=== PATIENT | female | born 1950 | race Caucasian/White ===

== ENCOUNTER 2017-10-11 21:32 | Inpatient (IN) | payer MEDICARE, OTHER ==
[2017-10-11] MEDS ORDERED: Haloperidol Lactate 5 mg/mL 1mL Vial IM STA (21:54)
[2017-10-11] MEDS ORDERED: Haloperidol Lactate 5 mg/mL 1mL Vial ONE (21:56)
--- NOTE | 2017-10-11 22:02 | ED Physician Chart ---
ED Chief Complaint/HPI - Patient Information Date Seen:: 10/11/17 Time Seen:: 21:30 Chief Complaint:: Agitation History of Present Illness:: onset x one day of agitation and hostile behavior; no report of SIs, trauma, H/ As, neck pain, C/P, SOB, Abd. Pain, A/N/V/D/C, fever, chills, or urinary s/s Allergies:: Allergies Allergy/AdvReac Type Severity Reaction Status Date / Time iodine AdvReac Verified 12/22/15 11:39 meperidine AdvReac Verified 12/22/15 11:39 methadone AdvReac Verified 12/22/15 11:39 SULFUR AdvReac Uncoded 12/22/15 11:39 Vitals:: Vital Signs - 8 hr 10/11/17 21:35 Temp 97.8 F HR 70 RR 18 BP 93/66 O2 Sat % 97 Historian:: Patient, EMS Review:: Nurse's Note Reviewed, Old Chart Reviewed, EMS run form Reviewed ED Review of Systems - Review of Systems General/Constitutional: No fever, No chills, No weight loss, No weakness, No diaphoresis, No edema, No loss of appetite Skin: No skin lesions, No rash, No bruising Head: No headache, No light-headedness Eyes: No loss of vision, No pain, No diplopia ENT: No earache, No nasal drainage, No sore throat, No tinnitus Neck: No neck pain, No swelling, No thyromegaly, No stiffness, No mass noted Cardio Vascular: No chest pain, No palpitations, No PND, No orthopnea, No edema Pulmonary: No SOB, No cough, No sputum, No wheezing GI: No nausea, No vomiting, No diarrhea, No pain, No melena, No hematochezia, No constipation, No hematemesis G/U: No dysuria, No frequency, No hematuria, No nacturia 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, No abnormal vaginal bleed, No contraction Musculoskeletal: No bone or joint pain, No back pain, No muscle pain Endocrine: Polyuria, Polydipsia Psychiatric: No prior psych history, No depression, No anxiety, No suicidal ideation, No homicidal ideation, Auditory hallucination, No visual hallucination Hematopoietic: No bruising, No lymphadenopathy Allergic/Immuno: No urticaria, No angioedema Neurological: No syncope, No focal symptoms, No weakness, No paresthesia, No headache, No seizure, No dizziness, No confusion, No vertigo ED Past Medical History - Past Medical History Obtainable: Yes Past Medical History: HTN, DM, Dyslipidemia, Dementia, Other (Alzheimer's Disease) Family History: Diabetes Melitus, HTN Social History: Non Smoker, No Alcohol, No Drug Use, Single, Care Facility Surgical History: None Psychiatricy History: Schizophrenia, Bipolar, Dementia Medication: Reviewed Family Medical History - Family Member Mother History Unknown: Yes Ethnicity: Unknown Living Status: Unknown Hx Family Cancer: (unknown) Hx Family Coronary Artery Disease: (unknown) Hx Family Congestive Heart Failure: (unknown) Hx Family Hypertension: (unknown) Hx Family Stroke: (unknown) Hx Family Diabetes: (unknown) Hx Family Seizures: (unknown) Hx Family Dementia: (unknown) Hx Family AIDS: (unknown) Hx Family COPD: (unknown) Hx Family Hepatitis: (unknown) Hx Family Psychiatric Problems: (unknown) Hx Family Tuberculosis: (unknown) ED Physical Exam - Physical Examination General/Constitutional: Awake, Well-developed, well-nourished, Alert, No distress, GCS 15, Non-toxic appearing, Ambulatory Head: Atraumatic Eyes: Lids, conjuctiva normal, PERRL, EOMI Skin: Nl inspection, No rash, No skin lesions, No ecchymosis, Well hydrated, No lymphadenopathy ENMT: External ears, nose nl, TM canals nl, Nasal exam nl, Lips, teeth, gums nl , Oropharynx nl, Tonsils nl Neck: Nontender, Full ROM w/o pain, No JVD, No nuchal rigidity, No bruit, No mass, No stridor Respiratory: Nl effort/Exclusion, Clear to Auscultation, No Wheeze/Rhonchi/Rales Cardio Vascular: RRR, No murmur, gallop, rubs, NL S1 S2, Carotid/Femoral/Distal pulses equal bilaterally GI: No tenderness/rebounding/guarding, No organomegaly, No hernia, Normal BS's, Nondistended, No mass/bruits, No McBurney tenderness : No CVA tenderness Extremities: No tenderness or effusion, Full ROM, normal strength in all extremities, No edema, Normal digits & nails Neuro/Psych: DTR's symmetric, Normal sensory exam, Normal motor strength, Mood normal, Normal gait, No focal deficits Other Neuro/Psych comments:: + Psychomotor Agitation; no SIs; Mood/Affect: Labile; Disoriented and Confused Misc: Normal back, No paraspinal tenderness ED Labs/Radiology/EKG Results - Lab Results Comments:: unremarkable - EKG Interpretations EKG Time:: 22:35 Rate & Rhythm: 53; SB Comments:: non-specific st-t changes ED Septic Shock - . Is Septic Shock (SBP<90, OR Lactate>4 mmol\L) present?: No - <6hrs of presentation: Vital Signs: Vital Signs - 8 hr 10/11/17 21:35 Temp 97.8 F HR 70 RR 18 BP 93/66 O2 Sat % 97 ED Reassessment (Disposition) - Reassessment Reassessment Condition:: Improved - Diagnosis Diagnosis:: Medical Clearance; Agitation; Dementia; Alzheimer's Disease; Bipolar Disorder; Psychosis - Aftercare/Follow up Instructions Aftercare/Follow-Up Instructions:: Counseled pt regarding lab results/diagnosis & need follow up, Counseled pt & family regarding lab results/diagnosis & need follow up - Patient Disposition Discharge/Transfer:: Acute Care w/in this hosp Accepting Physician:: Dr. Wilson Time Called:: [id number] Time Responded:: 22:30 Admitted to:: [facility] Spoke to:: Dr. Wilson Admitting Medical Physician:: Dr. Wilson Admitting Psych Physician:: Dr. Maldonado Condition at Disposition:: Stable, Improved ED Discharge Plan - Patient Disposition Instructions: Psychosis
[2017-10-11 22:15] LABS: % BASOPHILS 0.5 % (0.0-2.0); % EOSINOPHILS 2.2 % (0.0-5.0); % LYMPHOCYTES 30.8 % (20.0-50.0); % MONOCYTES 8.9 % (2.0-10.0); % NEUTROPHILS 57.6 % (40.0-80.0); EOSINOPHILE ABSOLUTE 0.2 Th/cmm (0.1-0.4); HEMATOCRIT 36.3 % (41.0-60); HEMOGLOBIN 11.9 gm/dL (12-16); LYMPHOCYTE ABSOLUTE 2.3 Th/cmm (1.5-3.0); MEAN CELL VOLUME 88.8 fl (81-100); MEAN CORPUSCULAR HEMOGLOBIN 29.1 pg (27.0-31.0); MEAN CORPUSCULAR HGB CONC 32.7 pg (28.0-36.0); MONOCYTE ABSOLUTE 0.7 Th/cmm (0.3-1.0); NEUTROPHILE ABSOLUTE 4.2 Th/cmm (1.8-8.0); PLATELET COUNT 326 Th/cmm (150-400); RED BLOOD COUNT 4.09 Mil/cmm (3.80-5.20); RED CELL DISTRIBUTION WIDTH 21.9 % (11.5-20.0); WHITE BLOOD COUNT 7.4 Th/cmm (4.8-10.8)
[2017-10-11 22:32] LABS: ACETAMINOPHEN < 10.0 ug/mL (10.0-30.0); ALB/GLOB RATIO 1.2 (1.0-1.8); ALBUMIN 3.7 gm/dL (3.7-5.3); ALKALINE PHOSPHATASE 47 U/L (34-104); BILIRUBIN,TOTAL 0.5 mg/dL (0.3-1.0); BUN - UREA NITROGEN 26 mg/dL (7-25); CARBON DIOXIDE 22.6 mEq/L (21.0-31.0); CHLORIDE 105 mEq/L (98-107); CHOLESTEROL 200 mg/dL (<200); CREATININE - SERUM 0.9 mg/dL (0.6-1.2); GFR AFRICAN-AMERICAN > 60.0 ml/min (>90); GFR NON AFRICAN-AMERICAN > 60.0 ml/min; GLUCOSE 99 mg/dL (70-105); HDL -HIGH DENSITY LIPOPROTEIN 46 mg/dL (23-92); POTASSIUM SERUM 4.6 mEq/L (3.5-5.1); SGOT 19 U/L (13-39); SGPT/ALT 26 U/L (7-52); SODIUM SERUM 137 mEq/L (136-145); TOTAL PROTEIN,SERUM 6.8 gm/dL (6.0-8.3); TRIGLYCERIDES 52 mg/dL (<150)
[2017-10-11 22:45] LABS: SALICYLATES (ASPIRIN) < 25.0 mg/L (30.0-100.0)
[2017-10-11 23:56] VITALS: BP 107/55
[2017-10-11] MEDS ORDERED: Maalox 30 mL Cup PO PRN (23:56)
[2017-10-12] MEDS ORDERED: Hydrocodone/APAP 10 mg/325 mg Tab PO PRN (00:03)
[2017-10-12] MEDS ORDERED: Hydrocodone/APAP 5mg/325mg Tab PO PRN (00:03)
[2017-10-12] MEDS ORDERED: Magnesium Hydroxide (MOM) 30 mL UDC PO PRN (00:03)
[2017-10-12] MEDS: INSULIN ASPART SLIDING SCALE 100 UNITS/ML UNIT SUBQ SCH ×2 (06:44→18:52)
[2017-10-12] MEDS ORDERED: INSULIN ASPART SLIDING SCALE 100 UNITS/ML UNIT SUBQ SCH (09:00)
[2017-10-12] MEDS: Ferrous Sulfate 325 MG TAB PO SCH (09:46)
[2017-10-12] MEDS: Pantoprazole 40 mg EC Tab PO SCH (09:46)
[2017-10-12] MEDS: Multivitamin Tab PO SCH (09:46)
[2017-10-12 18:43] LABS: A1C % 7.7 % (4.0-6.0)
[2017-10-12] MEDS: Insulin Detemir 100 units/mL 10mL Vial SUBQ SCH (21:31)
--- NOTE | 2017-10-13 04:35 | Psychosocial Evaluation ---
DATE OF SERVICE: 10/11/2017 IDENTIFYING DATA: The patient is a 67-year-old woman, resident of [facility] in [place]. Information obtained by directly interviewing the patient as well as reviewing the admission papers. JUSTIFICATION OF HOSPITALIZATION: The patient is admitted here for aggressive behavior and psychosis. CHIEF COMPLAINT: "I don't know." HISTORY OF PRESENT ILLNESS: This is one of multiple psychiatric hospitalizations for this patient who is reported to have been getting decompensated at least for past 3 weeks prior to the hospitalization. The patient is reported to be getting very aggressive and has been very paranoid and has been accusing people of doing things behind her back. Sleep and appetite prior to the hospitalization are reported to be very poor. The patient is not able to contract for safety. The patient is maintained on Seroquel and Ativan, but still the patient has been getting out of control. PAST PSYCHIATRIC HISTORY: The patient was hospitalized on many occasions before. MEDICAL HISTORY: Physical examination is requested and done by Dr. Steve Hickman. SUBSTANCE ABUSE HISTORY: None. PHYSICAL OR SEXUAL ABUSE HISTORY: None. LEGAL PROBLEMS: None at this time. STRENGTH AND ASSETS: MENTAL STATUS EXAMINATION: The patient is a 67-year-old woman looking older than her stated age, superficially cooperative. Eye contact is poor. Mood is irritable. Affect is constricted. Coping skills are noted to be very poor. The patient is actively responding to internal stimuli and is very paranoid and does not make much sense. The patient's long as well as a short-term memory is noted to be very poor. The patient is going on a tangent. The patient, however, is aware that she is in the hospital. DIAGNOSTIC IMPRESSION: AXIS I: Psychotic, not otherwise specified. AXIS IB. Rule out schizophrenia, chronic paranoid type. AXIS II: None. AXIS III: As per Dr. Wilson. IMMEDIATE TREATMENT PLAN: The patient is going to be observed on inpatient unit, provided with supportive psychotherapy and the patient is going to be continued on the Seroquel and Ativan. ESTIMATED LENGTH OF STAY: 3-5 days. DISCHARGE CRITERIA: When she no longer a threat to self or others and be able to cope up with the stress. [facility]# [id number]
[2017-10-13] MEDS: INSULIN ASPART SLIDING SCALE 100 UNITS/ML UNIT SUBQ SCH ×2 (08:00→16:31)
[2017-10-13] MEDS: Pantoprazole 40 mg EC Tab PO SCH (09:42)
[2017-10-13] MEDS: Multivitamin Tab PO SCH (09:42)
[2017-10-13] MEDS: Ferrous Sulfate 325 MG TAB PO SCH (09:43)
[2017-10-13] MEDS ORDERED: INSULIN ASPART, RECOMBINANT 100 UNITS/ML SUBQ ONE (12:07)
--- NOTE | 2017-10-13 15:34 | History and Physical ---
History of Present Illness - HPI Chief Complaint: agitation HPI: This is a 67 year old female admitted from SNF due to agitation. Vital Signs: Last Vital Signs Temp 98.1 F 10/11/17 23:17 Pulse 57 10/11/17 23:17 Resp 15 10/11/17 23:17 BP 107/55 10/11/17 23:56 Pulse Ox 99 10/11/17 23:17 Past Medical History Other History: HTN, DM, Dyslipidemia, Dementia, Other (Alzheimer's Disease) Family Medical History - Family Member Mother History Unknown: Yes Ethnicity: Unknown Living Status: Unknown Hx Family Cancer: (unknown) Hx Family Coronary Artery Disease: (unknown) Hx Family Congestive Heart Failure: (unknown) Hx Family Hypertension: (unknown) Hx Family Stroke: (unknown) Hx Family Diabetes: (unknown) Hx Family Seizures: (unknown) Hx Family Dementia: (unknown) Hx Family AIDS: (unknown) Hx Family COPD: (unknown) Hx Family Hepatitis: (unknown) Hx Family Psychiatric Problems: (unknown) Hx Family Tuberculosis: (unknown) Social History Smoke: No Alcohol: None Drugs: None Lives: Halfway - Medications Home Medications: Home Medication Medication Instructions Recorded Type Acetaminophen [Tylenol] 650 mg PO Q4HR PRN #0 tab 07/01/16 Rx Donepezil Hcl [Aricept] 10 mg PO HS #0 tab 07/01/16 Rx Magnesium Hydroxide [Milk of 30 ml PO HS PRN #0 udc 07/01/16 Rx Magnesia] Memantine [Namenda] 5 mg PO BID #0 tab 07/01/16 Rx Multivitamin [Theragran] 1 tab PO DAILY #0 tab 07/01/16 Rx metFORMIN [Glucophage] 1,000 mg PO BIDWM #0 tab 07/01/16 Rx Docusate Sodium [Colace] 100 mg PO BID 12/30/16 History Insulin Glargine, Recombinan 20 units SUBQ HS 12/30/16 History [Lantus] Ascorbic Acid [Vitamin C] 500 mg PO DAILY 10/11/17 History Calcium Carbonate [Tums] 500 mg PO DAILY 10/11/17 History Esomeprazole Magnesium [Nexium] 40 mg PO DAILY 10/11/17 History Famotidine [Pepcid*] 40 mg PO DAILY 10/11/17 History Ferrous Sulfate [Iron] 325 mg PO DAILY 10/11/17 History Hydrocodone/APAP 10 mg/325 mg 1 tab PO Q4H PRN 10/11/17 History [[place] 10 mg/325 mg] Hydrocodone/Acetaminophen [[place] 2 tab PO Q4HR PRN 10/11/17 History 325 mg-5 mg*] Insulin Aspart Sliding Scale See Protocol SUBQ BID 10/11/17 History [NovoLOG INSULIN SLIDING SCALE] Oxybutynin Chloride [Ditropan*] 5 mg PO TID 10/11/17 History QUEtiapine Fumarate [SEROquel] 150 mg PO DAILY 10/11/17 History - Allergies Allergies/Adverse Reactions: Allergies Allergy/AdvReac Type Severity Reaction Status Date / Time sulfur dioxide Allergy Verified 10/11/17 22:08 iodine AdvReac Verified 10/11/17 22:07 meperidine AdvReac Verified 10/11/17 22:07 methadone AdvReac Verified 10/11/17 22:07 Review of Systems - Review of Systems Constitutional: Report: No Significant Eyes: Report: No Significant ENT: Report: No Significant Respiratory: Report: No Significant Cardiovascular: Report: No Significant Gastrointestinal: Report: No Significant Genitourinary: Report: No Significant Musculoskeletal: Report: No Significant Skin: Report: No Significant Neurological: Report: No Significant Physical Exam - Physical Exam HEENT: Report: Ears Nose Throat within normal limits Neck: Report: Within normal limits Cardiovascular Systems: Report: +s1/s2 noted, Regular, Rate and Rhythm Respiratory: Report: Breath Sounds are within normal limits Abdomen: Report: Non-tender to palpation Back: Report: Inspection of back is within normal limits. Extremities: Report: Non-tender to palpation. Skin: Report: Color of skin is within normal limits Neuro/Psych: Report: Mood affect is within normal limits - Assessment Assessment: HTN DM Dyslipidemia Dementia Alzheimer's Disease agitation - Plan Plan: continue current orders
[2017-10-13] MEDS: Insulin Detemir 100 units/mL 10mL Vial SUBQ SCH (21:26)
--- NOTE | 2017-10-13 22:31 | Progress Notes ---
DATE: 10/13/2017 SUBJECTIVE: Staff was spoken to. The patient is interviewed. Mood is noted to be irritable. Affect is constricted. Coping skills are noted to still poor. The patient is isolative and withdrawn. Paranoid delusions are okay. The patient, however, has been able to tolerate the quetiapine that was given 150 mg at bedtime. The patient is still having difficult time to formulate her thoughts. ASSESSMENT: The patient is still psychotic and impulsive. PLAN: To continue the patient with the supportive therapy, encouraged the patient to verbalize the concerns rather than to act out. JOB# [id number]
--- NOTE | 2017-10-13 23:07 | Consultation ---
DATE OF CONSULTATION: 10/13/2017 REQUESTING PHYSICIAN: Darian Carreno M.D. TYPE OF CONSULTATION: Psychology. HISTORY OF PRESENT ILLNESS: The patient is a 67-year-old female who is a resident of [facility] in [place]. The patient is known to this keno writer from previous hospitalizations. The following is by review of the medical record and by patient's self report. The patient is being admitted for aggressive behavior and psychotic symptoms. The staff at the patient's facility indicate that she has been decompensating for approximately 3 weeks and not improving. The patient seemed to be getting aggressive with paranoid ideation and accusing people of doing things behind her back. The patient denied any suicidal ideation, plan or intention at the time of this clinical interview. PAST MEDICAL HISTORY: Please see history and physical by Dr. Wilson. PAST PSYCHIATRIC HISTORY: The patient has multiple previous hospitalizations. The patient is under the care of a psychiatrist at her facility. SUBSTANCE ABUSE HISTORY: None. CURRENT MEDICATIONS: Please see admission reconciliation. ALLERGIES: No known drug allergies. PSYCHOSOCIAL HISTORY: The patient is a resident of [facility] in [place]. The patient has family that is involved in her care. The patient states she is a Sabianism. The patient did not answer questions about occupational or educational history or any other family history or family relationships. According to record review, there are no legal problems at this time and the patient denies any history of physical or sexual abuse. MENTAL STATUS EXAMINATION: The patient appears to be older than her stated age. The patient's attitude is superficially cooperative, but guarded. Speech is slow. Eye contact is poor. Mood is irritable. Affect is constricted. The patient appears to be responding to internal stimuli. There is some evidence of paranoid ideation. The patient is not making much sense. Apparently there are loose associations also present. She states "people are doing things behind my back". The patient's behavior has been redirectable on the unit thus far. Impulse control is poor. Concentration is impaired. The patient was unable to sustain focus or attention on much of the clinical interview questions. Sensorium is alert and oriented to self and place only. The patient did not participate in the memory evaluation. All three dimensions i.e., immediate, short-term and long-term memory are noted to be poor. The patient continued to respond markedly tangentially in her responses. The patient is aware that she is in the hospital, but does not know why she is here. The patient did not participate in the interpretation of proverbs. Insight is impaired. Judgment is impaired. DIAGNOSTIC IMPRESSION: AXIS I: 1. Psychotic disorder, not otherwise specified. 2. Rule out schizophrenia, chronic paranoid type. AXIS II: Deferred. AXIS III: Please see history and physical by Dr. Wilson. TREATMENT PLAN: The patient has been seen by Dr. Carreno for psychiatric evaluation and for the management of the patient's psychotropic medications. The patient is continued on Seroquel and Ativan according to review of the record. We will provide supportive psychotherapy to include reality orientation, reality differentiation and reality integration. We will provide coping strategies for phase of life issues. We will provide motivational enhancement for the patient to become compliant and stay compliant with all aspects of her care and treatment plan. We will provide modeling of appropriate behavior with staff and to verbalize concerns versus acting out. Thank you, Dr. Carreno, for this consult and the opportunity to participate with you in this patient's care. JOB# [id number] JODY
[2017-10-14] MEDS: INSULIN ASPART SLIDING SCALE 100 UNITS/ML UNIT SUBQ SCH ×2 (06:53→17:47)
--- NOTE | 2017-10-14 10:50 | General Progress Note ---
Subjective - Review of Systems Events since last encounter: patient awake irritable in no acute distress Objective - Results Result Diagrams: 10/11/17 22:05 10/11/17 22:05 Recent Labs: Laboratory Last Values WBC 7.4 Th/cmm (4.8-10.8) 10/11/17 22:05 RBC 4.09 Mil/cmm (3.80-5.20) 10/11/17 22:05 Hgb 11.9 gm/dL (12-16) L 10/11/17 22:05 Hct 36.3 % (41.0-60) L 10/11/17 22:05 MCV 88.8 fl (81-100) 10/11/17 22:05 MCH 29.1 pg (27.0-31.0) 10/11/17 22:05 MCHC Differential 32.7 pg (28.0-36.0) 10/11/17 22:05 RDW 21.9 % (11.5-20.0) H 10/11/17 22:05 Plt Count 326 Th/cmm (150-400) 10/11/17 22:05 MPV 8.0 fl 10/11/17 22:05 Neutrophils % 57.6 % (40.0-80.0) 10/11/17 22:05 Lymphocytes % 30.8 % (20.0-50.0) 10/11/17 22:05 Monocytes % 8.9 % (2.0-10.0) 10/11/17 22:05 Eosinophils % 2.2 % (0.0-5.0) 10/11/17 22:05 Basophils % 0.5 % (0.0-2.0) 10/11/17 22:05 Sodium 137 mEq/L (136-145) 10/11/17 22:05 Potassium 4.6 mEq/L (3.5-5.1) 10/11/17 22:05 Chloride 105 mEq/L (98-107) 10/11/17 22:05 Carbon Dioxide 22.6 mEq/L (21.0-31.0) 10/11/17 22:05 Anion Gap 14.0 (7.0-16.0) 10/11/17 22:05 BUN 26 mg/dL (7-25) H 10/11/17 22:05 Creatinine 0.9 mg/dL (0.6-1.2) 10/11/17 22:05 Est GFR ( Amer) > 60.0 ml/min (>90) 10/11/17 22:05 Est GFR (Non-Af Amer) > 60.0 ml/min 10/11/17 22:05 BUN/Creatinine Ratio 28.9 10/11/17 22:05 Glucose 99 mg/dL (70-105) 10/11/17 22:05 Hemoglobin A1c % 7.7 % (4.0-6.0) H 10/11/17 22:05 Calcium 10.0 mg/dL (8.6-10.3) 10/11/17 22:05 Total Bilirubin 0.5 mg/dL (0.3-1.0) 10/11/17 22:05 AST 19 U/L (13-39) 10/11/17 22:05 ALT 26 U/L (7-52) 10/11/17 22:05 Alkaline Phosphatase 47 U/L (34-104) 10/11/17 22:05 Total Protein 6.8 gm/dL (6.0-8.3) 10/11/17 22:05 Albumin 3.7 gm/dL (3.7-5.3) 10/11/17 22:05 Globulin 3.1 gm/dL 10/11/17 22:05 Albumin/Globulin Ratio 1.2 (1.0-1.8) 10/11/17 22:05 Triglycerides 52 mg/dL (<150) 10/11/17 22:05 Cholesterol 200 mg/dL (<200) 10/11/17 22:05 LDL Cholesterol Direct 158 mg/dL (75-193) 10/11/17 22:05 HDL Cholesterol 46 mg/dL (23-92) 10/11/17 22:05 TSH 1.42 uIU/ml (0.34-5.60) 10/11/17 22:05 Salicylates < 25.0 mg/L (30.0-100.0) L 10/11/17 22:05 Acetaminophen < 10.0 ug/mL (10.0-30.0) L 10/11/17 22:05 Ethyl Alcohol < 10 mg/dL (0-10) 10/11/17 22:05 RPR NONREACTIVE (NONREACTIVE) 10/11/17 22:05 - Physical Exam Vitals and I&O: Vital Signs Temp 97.6 F 10/14/17 05:33 Pulse 62 10/14/17 05:33 Resp 18 10/14/17 05:33 BP 126/64 10/14/17 05:33 Pulse Ox 98 10/14/17 05:33 Intake & Output 10/13/17 10/14/17 10/14/17 18:59 06:59 18:59 Intake Total 241 Balance 241 Intake: Oral 241 Other: # Voids 1 Active Medications: Current Medications Acetaminophen (Tylenol) 650 mg PO Q4HR PRN PRN Reason: MILD PAIN Stop: 12/11/17 00:02 Acetaminophen/Hydrocodone Bitart (Welcome 10 Mg/325 Mg) 1 tab PO Q4H PRN PRN Reason: Pain (Moderate) Stop: 12/11/17 00:02 Acetaminophen/Hydrocodone Bitart (Welcome 5mg/325mg) 2 tab PO Q4HR PRN PRN Reason: Pain (Severe) Stop: 12/11/17 00:02 Al Hydrox/Mg Hydrox/Simethicone (Maalox) 30 ml PO Q4HR PRN PRN Reason: GI DISTRESS Stop: 12/10/17 23:55 Ascorbic Acid (Vitamin C) 500 mg PO DAILY MALIHA Stop: 12/11/17 08:59 Last Admin: 10/13/17 09:42 Dose: 500 mg Calcium Carbonate (Tums) 500 mg PO DAILY MALIHA Stop: 12/11/17 08:59 Last Admin: 10/13/17 09:45 Dose: 500 mg Docusate Sodium (Colace) 100 mg PO BID MALIHA Stop: 12/11/17 08:59 Last Admin: 10/13/17 16:34 Dose: 100 mg Donepezil HCl (Aricept) 10 mg PO HS MALIHA Stop: 12/11/17 20:59 Last Admin: 10/13/17 21:22 Dose: 10 mg Famotidine (Pepcid) 20 mg PO DAILY MALIHA Stop: 12/11/17 08:59 Last Admin: 10/13/17 09:45 Dose: 20 mg Ferrous Sulfate (Iron) 325 mg PO DAILY MALIHA Stop: 12/11/17 08:59 Last Admin: 10/13/17 09:43 Dose: 325 mg Insulin Aspart (Novolog Insulin Sliding Scale) 0 units SUBQ BIDAC MALIHA PRN Reason: Protocol Stop: 12/11/17 07:29 Last Admin: 10/14/17 06:53 Dose: Not Given Insulin Detemir (Levemir Insulin) 20 units SUBQ HS MALIHA Stop: 12/11/17 20:59 Last Admin: 10/13/17 21:26 Dose: Not Given Lorazepam (Ativan) 0.5 mg PO Q4HR PRN; Protocol PRN Reason: Anxiety Stop: 11/10/17 23:55 Last Admin: 10/12/17 09:47 Dose: 0.5 mg Magnesium Hydroxide (Milk Of Magnesia) 30 ml PO HS PRN PRN Reason: Constipation Stop: 12/11/17 00:02 Memantine (Namenda) 5 mg PO BID MALIHA Stop: 12/11/17 08:59 Last Admin: 10/13/17 16:34 Dose: 5 mg Metformin HCl (Glucophage) 1,000 mg PO BIDWM MALIHA Stop: 12/11/17 07:59 Last Admin: 10/13/17 09:41 Dose: 1,000 mg Multivitamins/Vitamin C (Theragran) 1 tab PO DAILY MALIHA Stop: 12/11/17 08:59 Last Admin: 10/13/17 09:42 Dose: 1 tab Oxybutynin Chloride (Ditropan) 5 mg PO TID MALIHA Stop: 12/11/17 08:59 Last Admin: 10/13/17 21:22 Dose: 5 mg Pantoprazole Sodium (Protonix) 40 mg PO DAILY MALIHA Stop: 12/11/17 08:59 Last Admin: 10/13/17 09:42 Dose: 40 mg Quetiapine Fumarate (Seroquel) 150 mg PO DAILY MALIHA PRN Reason: Protocol Stop: 12/11/17 08:59 Last Admin: 10/13/17 09:43 Dose: 150 mg Zolpidem Tartrate (Ambien) 5 mg PO HS PRN PRN Reason: Insomnia Stop: 12/10/17 23:55 Last Admin: 10/13/17 21:23 Dose: 5 mg - Procedures Procedures: Procedures Procedure Code Date GROUP PSYCHOTHERAPY 51316 12/17/15 GROUP PSYCHOTHERAPY [id number] 12/17/15 GROUP PSYCHOTHERAPY 86150 09/23/15 GROUP PSYCHOTHERAPY [id number] 09/23/15 GROUP PSYCHOTHERAPY 17895 06/10/15 GROUP PSYCHOTHERAPY [id number] 06/10/15
[2017-10-14] MEDS: Multivitamin Tab PO SCH (10:51)
[2017-10-14] MEDS: Ferrous Sulfate 325 MG TAB PO SCH (10:52)
[2017-10-14] MEDS: Pantoprazole 40 mg EC Tab PO SCH (10:52)
--- NOTE | 2017-10-14 16:23 | Progress Notes ---
DATE: 10/14/2017 SUBJECTIVE: Staff was spoken to. The patient is interviewed. Mood is noted to be anxious. Coping skills at this time are noted to be poor. The patient has been calling other people with racial slurs. Insight and judgment are very much impaired. Impulse control seems to be limited. The patient needs to be redirected. The patient has no insight into her illness. The patient is paranoid at this time. PLAN: The patient is going to be continued on the Seroquel 150 mg and the patient is going to be closely monitored. The patient is encouraged to verbalize the concerns rather than to act out. If the patient continues to be impulsive, a low dose of the Depakote is going to be looked into. JOB# [id number]
[2017-10-14] MEDS: Insulin Detemir 100 units/mL 10mL Vial SUBQ SCH (21:54)
[2017-10-15] MEDS: INSULIN ASPART SLIDING SCALE 100 UNITS/ML UNIT SUBQ SCH (06:32)
[2017-10-15] MEDS: Ferrous Sulfate 325 MG TAB PO SCH (09:05)
[2017-10-15] MEDS: Multivitamin Tab PO SCH (09:05)
[2017-10-15] MEDS: Pantoprazole 40 mg EC Tab PO SCH (09:08)
--- NOTE | 2017-10-15 10:26 | General Progress Note ---
Subjective - Review of Systems Events since last encounter: patient disorganized anxious, no sings of pain Objective - Results Result Diagrams: 10/11/17 22:05 10/11/17 22:05 Recent Labs: Laboratory Last Values WBC 7.4 Th/cmm (4.8-10.8) 10/11/17 22:05 RBC 4.09 Mil/cmm (3.80-5.20) 10/11/17 22:05 Hgb 11.9 gm/dL (12-16) L 10/11/17 22:05 Hct 36.3 % (41.0-60) L 10/11/17 22:05 MCV 88.8 fl (81-100) 10/11/17 22:05 MCH 29.1 pg (27.0-31.0) 10/11/17 22:05 MCHC Differential 32.7 pg (28.0-36.0) 10/11/17 22:05 RDW 21.9 % (11.5-20.0) H 10/11/17 22:05 Plt Count 326 Th/cmm (150-400) 10/11/17 22:05 MPV 8.0 fl 10/11/17 22:05 Neutrophils % 57.6 % (40.0-80.0) 10/11/17 22:05 Lymphocytes % 30.8 % (20.0-50.0) 10/11/17 22:05 Monocytes % 8.9 % (2.0-10.0) 10/11/17 22:05 Eosinophils % 2.2 % (0.0-5.0) 10/11/17 22:05 Basophils % 0.5 % (0.0-2.0) 10/11/17 22:05 Sodium 137 mEq/L (136-145) 10/11/17 22:05 Potassium 4.6 mEq/L (3.5-5.1) 10/11/17 22:05 Chloride 105 mEq/L (98-107) 10/11/17 22:05 Carbon Dioxide 22.6 mEq/L (21.0-31.0) 10/11/17 22:05 Anion Gap 14.0 (7.0-16.0) 10/11/17 22:05 BUN 26 mg/dL (7-25) H 10/11/17 22:05 Creatinine 0.9 mg/dL (0.6-1.2) 10/11/17 22:05 Est GFR ( Amer) > 60.0 ml/min (>90) 10/11/17 22:05 Est GFR (Non-Af Amer) > 60.0 ml/min 10/11/17 22:05 BUN/Creatinine Ratio 28.9 10/11/17 22:05 Glucose 99 mg/dL (70-105) 10/11/17 22:05 Hemoglobin A1c % 7.7 % (4.0-6.0) H 10/11/17 22:05 Calcium 10.0 mg/dL (8.6-10.3) 10/11/17 22:05 Total Bilirubin 0.5 mg/dL (0.3-1.0) 10/11/17 22:05 AST 19 U/L (13-39) 10/11/17 22:05 ALT 26 U/L (7-52) 10/11/17 22:05 Alkaline Phosphatase 47 U/L (34-104) 10/11/17 22:05 Total Protein 6.8 gm/dL (6.0-8.3) 10/11/17 22:05 Albumin 3.7 gm/dL (3.7-5.3) 10/11/17 22:05 Globulin 3.1 gm/dL 10/11/17 22:05 Albumin/Globulin Ratio 1.2 (1.0-1.8) 10/11/17 22:05 Triglycerides 52 mg/dL (<150) 10/11/17 22:05 Cholesterol 200 mg/dL (<200) 10/11/17 22:05 LDL Cholesterol Direct 158 mg/dL (75-193) 10/11/17 22:05 HDL Cholesterol 46 mg/dL (23-92) 10/11/17 22:05 TSH 1.42 uIU/ml (0.34-5.60) 10/11/17 22:05 Salicylates < 25.0 mg/L (30.0-100.0) L 10/11/17 22:05 Acetaminophen < 10.0 ug/mL (10.0-30.0) L 10/11/17 22:05 Ethyl Alcohol < 10 mg/dL (0-10) 10/11/17 22:05 RPR NONREACTIVE (NONREACTIVE) 10/11/17 22:05 - Physical Exam Vitals and I&O: Vital Signs Temp 98.3 F 10/15/17 06:09 Pulse 76 10/15/17 06:09 Resp 20 10/15/17 06:09 BP 104/54 10/15/17 06:09 Pulse Ox 97 10/15/17 06:09 Intake & Output 10/14/17 10/15/17 10/15/17 18:59 06:59 18:59 Intake Total 120 Balance 120 Intake: Oral 120 Other: # Voids 3 # Bowel Movements 1 Active Medications: Current Medications Acetaminophen (Tylenol) 650 mg PO Q4HR PRN PRN Reason: MILD PAIN Stop: 12/11/17 00:02 Acetaminophen/Hydrocodone Bitart ([place] 10 Mg/325 Mg) 1 tab PO Q4H PRN PRN Reason: Pain (Moderate) Stop: 12/11/17 00:02 Acetaminophen/Hydrocodone Bitart ([place] 5mg/325mg) 2 tab PO Q4HR PRN PRN Reason: Pain (Severe) Stop: 12/11/17 00:02 Al Hydrox/Mg Hydrox/Simethicone (Maalox) 30 ml PO Q4HR PRN PRN Reason: GI DISTRESS Stop: 12/10/17 23:55 Ascorbic Acid (Vitamin C) 500 mg PO DAILY [facility] Stop: 12/11/17 08:59 Last Admin: 10/14/17 10:52 Dose: 500 mg Calcium Carbonate (Tums) 500 mg PO DAILY [facility] Stop: 12/11/17 08:59 Last Admin: 10/14/17 10:53 Dose: 500 mg Docusate Sodium (Colace) 100 mg PO BID [facility] Stop: 12/11/17 08:59 Last Admin: 10/14/17 17:47 Dose: 100 mg Donepezil HCl (Aricept) 10 mg PO HS [facility] Stop: 12/11/17 20:59 Last Admin: 10/14/17 21:40 Dose: 10 mg Famotidine (Pepcid) 20 mg PO DAILY [facility] Stop: 12/11/17 08:59 Last Admin: 10/14/17 10:52 Dose: 20 mg Ferrous Sulfate (Iron) 325 mg PO DAILY [facility] Stop: 12/11/17 08:59 Last Admin: 10/14/17 10:52 Dose: 325 mg Insulin Aspart (Novolog Insulin Sliding Scale) 0 units SUBQ BIDAC [facility] PRN Reason: Protocol Stop: 12/11/17 07:29 Last Admin: 10/15/17 06:32 Dose: Not Given Insulin Detemir (Levemir Insulin) 20 units SUBQ HS [facility] Stop: 12/11/17 20:59 Last Admin: 10/14/17 21:54 Dose: 20 unit Lorazepam (Ativan) 0.5 mg PO Q4HR PRN; Protocol PRN Reason: Anxiety Stop: 11/10/17 23:55 Last Admin: 10/12/17 09:47 Dose: 0.5 mg Magnesium Hydroxide (Milk Of Magnesia) 30 ml PO HS PRN PRN Reason: Constipation Stop: 12/11/17 00:02 Memantine (Namenda) 5 mg PO BID [facility] Stop: 12/11/17 08:59 Last Admin: 10/14/17 17:47 Dose: 5 mg Metformin HCl (Glucophage) 1,000 mg PO BIDWM [facility] Stop: 12/11/17 07:59 Last Admin: 10/14/17 17:47 Dose: 1,000 mg Multivitamins/Vitamin C (Theragran) 1 tab PO DAILY [facility] Stop: 12/11/17 08:59 Last Admin: 10/14/17 10:51 Dose: 1 tab Oxybutynin Chloride (Ditropan) 5 mg PO TID [facility] Stop: 12/11/17 08:59 Last Admin: 10/14/17 21:41 Dose: 5 mg Pantoprazole Sodium (Protonix) 40 mg PO DAILY [facility] Stop: 12/11/17 08:59 Last Admin: 10/14/17 10:52 Dose: 40 mg Quetiapine Fumarate (Seroquel) 150 mg PO DAILY [facility] PRN Reason: Protocol Stop: 12/11/17 08:59 Last Admin: 10/14/17 10:51 Dose: 150 mg Zolpidem Tartrate (Ambien) 5 mg PO HS PRN PRN Reason: Insomnia Stop: 12/10/17 23:55 Last Admin: 10/14/17 21:41 Dose: 5 mg - Procedures Procedures: Procedures Procedure Code Date GROUP PSYCHOTHERAPY 12909 12/17/15 GROUP PSYCHOTHERAPY GZHZZZZ 12/17/15 GROUP PSYCHOTHERAPY 90022 09/23/15 GROUP PSYCHOTHERAPY GZHZZZZ 09/23/15 GROUP PSYCHOTHERAPY 72796 06/10/15 GROUP PSYCHOTHERAPY GZHZZZZ 06/10/15
--- NOTE | 2017-10-15 17:08 | Progress Notes ---
DATE: 10/15/2017 PSYCHIATRIC PROGRESS NOTE SUBJECTIVE: Staff was spoken to. The patient is interviewed. Mood is noted to be anxious. Coping skills are noted to be poor at this time. Insight and judgment are be still impaired. The patient has been using racial slurs. The patient gets easily upset. No side effects to the medications are noted at this time. Continues to be paranoid and demented. The patient has been able to tolerate the medication. Sleep is noted to be improving. Appetite is noted to be poor. ASSESSMENT: The patient is still psychotic and impulsive. PLAN: Continue the patient with the current medications and follow. [facility]# [id number]
[2017-10-15] MEDS: Insulin Detemir 100 units/mL 10mL Vial SUBQ SCH (21:16)
[2017-10-16] MEDS: INSULIN ASPART SLIDING SCALE 100 UNITS/ML UNIT SUBQ SCH ×2 (06:42→17:17)
[2017-10-16] MEDS: Multivitamin Tab PO SCH (08:37)
[2017-10-16] MEDS: Ferrous Sulfate 325 MG TAB PO SCH (08:37)
[2017-10-16] MEDS: Pantoprazole 40 mg EC Tab PO SCH (08:38)
--- NOTE | 2017-10-16 15:27 | General Progress Note ---
Subjective - Review of Systems Events since last encounter: patient psychotic irritable Objective - Results Result Diagrams: 10/11/17 22:05 10/11/17 22:05 Recent Labs: Laboratory Last Values WBC 7.4 Th/cmm (4.8-10.8) 10/11/17 22:05 RBC 4.09 Mil/cmm (3.80-5.20) 10/11/17 22:05 Hgb 11.9 gm/dL (12-16) L 10/11/17 22:05 Hct 36.3 % (41.0-60) L 10/11/17 22:05 MCV 88.8 fl (81-100) 10/11/17 22:05 MCH 29.1 pg (27.0-31.0) 10/11/17 22:05 MCHC Differential 32.7 pg (28.0-36.0) 10/11/17 22:05 RDW 21.9 % (11.5-20.0) H 10/11/17 22:05 Plt Count 326 Th/cmm (150-400) 10/11/17 22:05 MPV 8.0 fl 10/11/17 22:05 Neutrophils % 57.6 % (40.0-80.0) 10/11/17 22:05 Lymphocytes % 30.8 % (20.0-50.0) 10/11/17 22:05 Monocytes % 8.9 % (2.0-10.0) 10/11/17 22:05 Eosinophils % 2.2 % (0.0-5.0) 10/11/17 22:05 Basophils % 0.5 % (0.0-2.0) 10/11/17 22:05 Sodium 137 mEq/L (136-145) 10/11/17 22:05 Potassium 4.6 mEq/L (3.5-5.1) 10/11/17 22:05 Chloride 105 mEq/L (98-107) 10/11/17 22:05 Carbon Dioxide 22.6 mEq/L (21.0-31.0) 10/11/17 22:05 Anion Gap 14.0 (7.0-16.0) 10/11/17 22:05 BUN 26 mg/dL (7-25) H 10/11/17 22:05 Creatinine 0.9 mg/dL (0.6-1.2) 10/11/17 22:05 Est GFR ( Amer) > 60.0 ml/min (>90) 10/11/17 22:05 Est GFR (Non-Af Amer) > 60.0 ml/min 10/11/17 22:05 BUN/Creatinine Ratio 28.9 10/11/17 22:05 Glucose 99 mg/dL (70-105) 10/11/17 22:05 Hemoglobin A1c % 7.7 % (4.0-6.0) H 10/11/17 22: Calcium 10.0 mg/dL (8.6-10.3) 10/11/17 22:05 Total Bilirubin 0.5 mg/dL (0.3-1.0) 10/11/17 22:05 AST 19 U/L (13-39) 10/11/17 22: ALT 26 U/L (7-52) 10/11/17 22: Alkaline Phosphatase 47 U/L (34-104) 10/11/17 22:05 Total Protein 6.8 gm/dL (6.0-8.3) 10/11/17 22: Albumin 3.7 gm/dL (3.7-5.3) 10/11/17 22: Globulin 3.1 gm/dL 10/11/17 22: Albumin/Globulin Ratio 1.2 (1.0-1.8) 10/11/17 22:05 Triglycerides 52 mg/dL (<150) 10/11/17 22: Cholesterol 200 mg/dL (<200) 10/11/17 22:05 LDL Cholesterol Direct 158 mg/dL (75-193) 10/11/17 22:05 HDL Cholesterol 46 mg/dL (23-92) 10/11/17 22: TSH 1.42 uIU/ml (0.34-5.60) 10/11/17 22:05 Salicylates < 25.0 mg/L (30.0-100.0) L 10/11/17 22:05 Acetaminophen < 10.0 ug/mL (10.0-30.0) L 10/11/17 22:05 Ethyl Alcohol < 10 mg/dL (0-10) 10/11/17 22:05 RPR NONREACTIVE (NONREACTIVE) 10/11/17 22:05 - Physical Exam Vitals and I&O: Vital Signs Temp 97.1 F 10/16/17 06:30 Pulse 61 10/16/17 06:30 Resp 18 10/16/17 08:00 BP 107/56 10/16/17 06:30 Pulse Ox 99 10/16/17 06:30 Intake & Output 10/15/17 10/16/17 10/16/17 18:59 06:59 18:59 Intake Total 1000 480 Balance 1000 480 Intake: Oral 1000 480 Other: # Voids 3 1 # Bowel Movements 1 Active Medications: Current Medications Acetaminophen (Tylenol) 650 mg PO Q4HR PRN PRN Reason: MILD PAIN Stop: 12/11/17 00:02 Acetaminophen/Hydrocodone Bitart ([place] 10 Mg/325 Mg) 1 tab PO Q4H PRN PRN Reason: Pain (Moderate) Stop: 12/11/17 00:02 Acetaminophen/Hydrocodone Bitart ([place] 5mg/325mg) 2 tab PO Q4HR PRN PRN Reason: Pain (Severe) Stop: 12/11/17 00:02 Al Hydrox/Mg Hydrox/Simethicone (Maalox) 30 ml PO Q4HR PRN PRN Reason: GI DISTRESS Stop: 12/10/17 23:55 Ascorbic Acid (Vitamin C) 500 mg PO DAILY [facility] Stop: 12/11/17 08:59 Last Admin: 10/16/17 08:36 Dose: 500 mg Calcium Carbonate (Tums) 500 mg PO DAILY [facility] Stop: 12/11/17 08:59 Last Admin: 10/16/17 08:36 Dose: 500 mg Docusate Sodium (Colace) 100 mg PO BID [facility] Stop: 12/11/17 08:59 Last Admin: 10/16/17 08:37 Dose: 100 mg Donepezil HCl (Aricept) 10 mg PO HS [facility] Stop: 12/11/17 20:59 Last Admin: 10/15/17 21:07 Dose: 10 mg Famotidine (Pepcid) 20 mg PO DAILY [facility] Stop: 12/11/17 08:59 Last Admin: 10/16/17 08:37 Dose: 20 mg Ferrous Sulfate (Iron) 325 mg PO DAILY [facility] Stop: 12/11/17 08:59 Last Admin: 10/16/17 08:37 Dose: 325 mg Insulin Aspart (Novolog Insulin Sliding Scale) 0 units SUBQ BIDAC [facility] PRN Reason: Protocol Stop: 12/11/17 07:29 Last Admin: 10/16/17 06:42 Dose: Not Given Insulin Detemir (Levemir Insulin) 20 units SUBQ HS [facility] Stop: 12/11/17 20:59 Last Admin: 10/15/17 21:16 Dose: Not Given Lorazepam (Ativan) 0.5 mg PO Q4HR PRN; Protocol PRN Reason: Anxiety Stop: 11/10/17 23:55 Last Admin: 10/15/17 12:17 Dose: 0.5 mg Magnesium Hydroxide (Milk Of Magnesia) 30 ml PO HS PRN PRN Reason: Constipation Stop: 12/11/17 00:02 Memantine (Namenda) 5 mg PO BID [facility] Stop: 12/11/17 08:59 Last Admin: 10/16/17 08:37 Dose: 5 mg Metformin HCl (Glucophage) 1,000 mg PO BIDWM [facility] Stop: 12/11/17 07:59 Last Admin: 10/16/17 08:56 Dose: 1,000 mg Multivitamins/Vitamin C (Theragran) 1 tab PO DAILY [facility] Stop: 12/11/17 08:59 Last Admin: 10/16/17 08:37 Dose: 1 tab Oxybutynin Chloride (Ditropan) 5 mg PO TID [facility] Stop: 12/11/17 08:59 Last Admin: 10/16/17 08:37 Dose: 5 mg Pantoprazole Sodium (Protonix) 40 mg PO DAILY [facility] Stop: 12/11/17 08:59 Last Admin: 10/16/17 08:38 Dose: 40 mg Quetiapine Fumarate (Seroquel) 150 mg PO DAILY [facility] PRN Reason: Protocol Stop: 12/11/17 08:59 Last Admin: 10/16/17 09:56 Dose: 150 mg Zolpidem Tartrate (Ambien) 5 mg PO HS PRN PRN Reason: Insomnia Stop: 12/10/17 23:55 Last Admin: 10/14/17 21:41 Dose: 5 mg - Procedures Procedures: Procedures Procedure Code Date GROUP PSYCHOTHERAPY 66816 12/17/15 GROUP PSYCHOTHERAPY GZHZZZZ 12/17/15 GROUP PSYCHOTHERAPY 38258 09/23/15 GROUP PSYCHOTHERAPY GZHZZZZ 09/23/15 GROUP PSYCHOTHERAPY 55537 06/10/15 GROUP PSYCHOTHERAPY GZHZZZZ 06/10/15
[2017-10-16] MEDS: Insulin Detemir 100 units/mL 10mL Vial SUBQ SCH (21:01)
--- NOTE | 2017-10-17 01:42 | Progress Notes ---
DATE: 10/16/2017 SUBJECTIVE: Staff was spoken to. The patient is interviewed. Mood is noted to be anxious. The patient has been aggressive and has been using profanities that other people with racial slurs. The patient has no insight into her illness. Coping skills are noted to be still poor. No side effects to the medications are noted. ASSESSMENT: The patient is still psychotic and impulsive. PLAN: To continue the patient with the current medications and followup. JOB# [id number]
[2017-10-17] MEDS: INSULIN ASPART SLIDING SCALE 100 UNITS/ML UNIT SUBQ SCH (06:41)
[2017-10-17] MEDS: Ferrous Sulfate 325 MG TAB PO SCH (09:41)
[2017-10-17] MEDS: Pantoprazole 40 mg EC Tab PO SCH (09:42)
[2017-10-17] MEDS: Multivitamin Tab PO SCH (09:42)
--- NOTE | 2017-10-17 13:26 | Internal Medicine Prog Note ---
Internal Medicine Subjective - Subjective Service Date: 10/17/17 Patient seen and examined:: with staff Patient is:: awake Per staff patient has:: tolerating meds Internal Medicine Objective - Results Result Diagrams: 10/11/17 22:05 10/11/17 22:05 Recent Labs: Laboratory Last Values WBC 7.4 Th/cmm (4.8-10.8) 10/11/17 22:05 RBC 4.09 Mil/cmm (3.80-5.20) 10/11/17 22:05 Hgb 11.9 gm/dL (12-16) L 10/11/17 22:05 Hct 36.3 % (41.0-60) L 10/11/17 22:05 MCV 88.8 fl (81-100) 10/11/17 22:05 MCH 29.1 pg (27.0-31.0) 10/11/17 22:05 MCHC Differential 32.7 pg (28.0-36.0) 10/11/17 22:05 RDW 21.9 % (11.5-20.0) H 10/11/17 22:05 Plt Count 326 Th/cmm (150-400) 10/11/17 22:05 MPV 8.0 fl 10/11/17 22:05 Neutrophils % 57.6 % (40.0-80.0) 10/11/17 22:05 Lymphocytes % 30.8 % (20.0-50.0) 10/11/17 22:05 Monocytes % 8.9 % (2.0-10.0) 10/11/17 22:05 Eosinophils % 2.2 % (0.0-5.0) 10/11/17 22:05 Basophils % 0.5 % (0.0-2.0) 10/11/17 22:05 Sodium 137 mEq/L (136-145) 10/11/17 22:05 Potassium 4.6 mEq/L (3.5-5.1) 10/11/17 22:05 Chloride 105 mEq/L (98-107) 10/11/17 22:05 Carbon Dioxide 22.6 mEq/L (21.0-31.0) 10/11/17 22:05 Anion Gap 14.0 (7.0-16.0) 10/11/17 22:05 BUN 26 mg/dL (7-25) H 10/11/17 22:05 Creatinine 0.9 mg/dL (0.6-1.2) 10/11/17 22:05 Est GFR ( Amer) > 60.0 ml/min (>90) 10/11/17 22:05 Est GFR (Non-Af Amer) > 60.0 ml/min 10/11/17 22:05 BUN/Creatinine Ratio 28.9 10/11/17 22:05 Glucose 99 mg/dL (70-105) 10/11/17 22:05 POC Glucose 41 MG/DL (70-105) L 10/13/17 08:03 Hemoglobin A1c % 7.7 % (4.0-6.0) H 10/11/17 22:05 Calcium 10.0 mg/dL (8.6-10.3) 10/11/17 22:05 Total Bilirubin 0.5 mg/dL (0.3-1.0) 10/11/17 22:05 AST 19 U/L (13-39) 10/11/17 22:05 ALT 26 U/L (7-52) 10/11/17 22:05 Alkaline Phosphatase 47 U/L (34-104) 10/11/17 22:05 Total Protein 6.8 gm/dL (6.0-8.3) 10/11/17 22:05 Albumin 3.7 gm/dL (3.7-5.3) 10/11/17 22:05 Globulin 3.1 gm/dL 10/11/17 22:05 Albumin/Globulin Ratio 1.2 (1.0-1.8) 10/11/17 22:05 Triglycerides 52 mg/dL (<150) 10/11/17 22:05 Cholesterol 200 mg/dL (<200) 10/11/17 22:05 LDL Cholesterol Direct 158 mg/dL (75-193) 10/11/17 22:05 HDL Cholesterol 46 mg/dL (23-92) 10/11/17 22:05 TSH 1.42 uIU/ml (0.34-5.60) 10/11/17 22:05 Salicylates < 25.0 mg/L (30.0-100.0) L 10/11/17 22:05 Acetaminophen < 10.0 ug/mL (10.0-30.0) L 10/11/17 22:05 Ethyl Alcohol < 10 mg/dL (0-10) 10/11/17 22:05 RPR NONREACTIVE (NONREACTIVE) 10/11/17 22:05 - Physical Exam Vitals and I&O: Vital Signs Temp 98.0 F 10/17/17 05:55 Pulse 58 10/17/17 05:55 Resp 18 10/17/17 07:44 BP 118/72 10/17/17 05:55 Pulse Ox 98 10/16/17 20:33 Intake & Output 10/16/17 10/17/17 10/17/17 18:59 06:59 18:59 Intake Total 120 Balance 120 Intake: Oral 120 Other: # Voids 1 Active Medications: Current Medications Acetaminophen (Tylenol) 650 mg PO Q4HR PRN PRN Reason: MILD PAIN Stop: 12/11/17 00:02 Acetaminophen/Hydrocodone Bitart ([place] 10 Mg/325 Mg) 1 tab PO Q4H PRN PRN Reason: Pain (Moderate) Stop: 12/11/17 00:02 Acetaminophen/Hydrocodone Bitart ([place] 5mg/325mg) 2 tab PO Q4HR PRN PRN Reason: Pain (Severe) Stop: 12/11/17 00:02 Al Hydrox/Mg Hydrox/Simethicone (Maalox) 30 ml PO Q4HR PRN PRN Reason: GI DISTRESS Stop: 12/10/17 23:55 Ascorbic Acid (Vitamin C) 500 mg PO DAILY [facility] Stop: 12/11/17 08:59 Last Admin: 10/17/17 09:42 Dose: 500 mg Calcium Carbonate (Tums) 500 mg PO DAILY [facility] Stop: 12/11/17 08:59 Last Admin: 10/17/17 09:42 Dose: 500 mg Docusate Sodium (Colace) 100 mg PO BID [facility] Stop: 12/11/17 08:59 Last Admin: 10/17/17 09:42 Dose: 100 mg Donepezil HCl (Aricept) 10 mg PO HS [facility] Stop: 12/11/17 20:59 Last Admin: 10/16/17 21:08 Dose: 10 mg Famotidine (Pepcid) 20 mg PO DAILY [facility] Stop: 12/11/17 08:59 Last Admin: 10/17/17 09:42 Dose: 20 mg Ferrous Sulfate (Iron) 325 mg PO DAILY [facility] Stop: 12/11/17 08:59 Last Admin: 10/17/17 09:41 Dose: 325 mg Insulin Aspart (Novolog Insulin Sliding Scale) 0 units SUBQ BIDAC [facility] PRN Reason: Protocol Stop: 12/11/17 07:29 Last Admin: 10/17/17 06:41 Dose: Not Given Insulin Detemir (Levemir Insulin) 20 units SUBQ HS [facility] Stop: 12/11/17 20:59 Last Admin: 10/16/17 21:01 Dose: 20 unit Lorazepam (Ativan) 0.5 mg PO Q4HR PRN; Protocol PRN Reason: Anxiety Stop: 11/10/17 23:55 Last Admin: 10/15/17 12:17 Dose: 0.5 mg Magnesium Hydroxide (Milk Of Magnesia) 30 ml PO HS PRN PRN Reason: Constipation Stop: 12/11/17 00:02 Memantine (Namenda) 5 mg PO BID [facility] Stop: 12/11/17 08:59 Last Admin: 10/17/17 09:42 Dose: 5 mg Metformin HCl (Glucophage) 1,000 mg PO BIDWM [facility] Stop: 12/11/17 07:59 Last Admin: 10/17/17 08:42 Dose: 1,000 mg Multivitamins/Vitamin C (Theragran) 1 tab PO DAILY [facility] Stop: 12/11/17 08:59 Last Admin: 10/17/17 09:42 Dose: 1 tab Oxybutynin Chloride (Ditropan) 5 mg PO TID [facility] Stop: 12/11/17 08:59 Last Admin: 10/17/17 09:41 Dose: 5 mg Pantoprazole Sodium (Protonix) 40 mg PO DAILY [facility] Stop: 12/11/17 08:59 Last Admin: 10/17/17 09:42 Dose: 40 mg Quetiapine Fumarate (Seroquel) 150 mg PO DAILY [facility] PRN Reason: Protocol Stop: 12/11/17 08:59 Last Admin: 10/17/17 09:43 Dose: 150 mg Zolpidem Tartrate (Ambien) 5 mg PO HS PRN PRN Reason: Insomnia Stop: 12/10/17 23:55 Last Admin: 10/14/17 21:41 Dose: 5 mg General: alert HEENT: NC/AT, PERRLA Neck: Supple Lungs: CTAB Cardiovascular: RRR Abdomen: soft, non-tender, non-distended, positive bowel sound - Procedures Procedures: Procedures Procedure Code Date GROUP PSYCHOTHERAPY 64438 12/17/15 GROUP PSYCHOTHERAPY GZHZZZZ 12/17/15 GROUP PSYCHOTHERAPY 65044 09/23/15 GROUP PSYCHOTHERAPY GZHZZZZ 09/23/15 GROUP PSYCHOTHERAPY 33470 06/10/15 GROUP PSYCHOTHERAPY GZHZZZZ 06/10/15 Internal Medicine Assmt/Plan - Assessment Assessment: HTN DM Dyslipidemia Dementia Alzheimer's Disease agitation - Plan Plan: continue current orders Nutritional Asmnt/Malnutr-PDOC - Dietary Evaluation Malnutrition Findings (Please click <Entered> for more info): Nutritional Asmnt/Malnutrition Start: 10/16/17 17: 23 Text: Status: Complete Freq: Document 10/16/17 17:23 SUZANNE (Rec: 10/16/17 17:37 [email or web address]) Nutritional Asmnt/Malnutrition Patient General Information Nutritional Screening Moderate Risk Diagnosis psychosis Pertinent Medical Hx/Surgical Hx HTN, DM, dyslipidemia, dementia, alzheimer's disease Subjective Information Per EMR PO intake 50-85%, avg 75%. Current Diet Order/ Nutrition Support mech soft chopped Pertinent Labs 10/11 BUN 26, A1c 7.7 Nutritional Hx/Data Height 5 ft 2 in Height (Calculated Centimeters) 157.5 Current Weight (lbs) 128 lb Weight (Calculated Kilograms) 58.1 Weight (Calculated Grams) 02371.8 [place] Body Weight 110 Body Mass Index (BMI) 23.3 GI Symptoms GI Symptoms None Last BM 10/15 Difficult in: None Skin Integrity/Comment: dryness Current %PO Fair (50-74%) Estimated Nutritional Goals BEE in Kcals: Using Current wt Calories/Kcals/Kg 25-30 Kcals Calculated 8118-0028 Protein: Using Current wt Protein g/k-1.2 Protein Calculated 58-70 Fluid: ml 1450-1740ml (1ml/kcal) Nutritional Problem 1. Problem Problem altered nutrition related labs Etiology hx of DM Signs/Symptoms: a1c 7.7 Malnutrition Alert Protein-Calorie Malnutrition N/A Is there a minimum of two criteria No selected? Query Text:Check all the applicable criteria. A minimum of two criteria are recommended for diagnosis of either severe or non-severe malnutrition. Intervention/Recommendation Comments 1. Continue with current diet as ordered. If glucose high, will consider CCHO diet. 2. Monitor PO intake, wt, labs and skin integrity 3. F/U as moderate risk in 3-5 days, 10/19-10/21 Expected Outcomes/Goals Expected Outcomes/Goals 1. PO intake to meet at least 75% of nutritional needs. 2. Wt stability, skin to remain intact, labs to approach WNL.
--- NOTE | 2017-10-17 20:56 | Discharge Summary ---
DATE OF DISCHARGE: 10/17/2017 IDENTIFYING DATA: The patient is a 67-year-old woman, resident of [facility] in [place]. JUSTIFICATION OF HOSPITALIZATION: The patient is admitted on a voluntary basis in view of her aggressive behavior and psychosis. CHIEF COMPLAINT: "I do not know." DIAGNOSES AT THE TIME OF ADMISSION: AXIS I: Schizophrenia, chronic paranoid type. AXIS II: None. AXIS III: As per Dr. Wilson. HISTORY OF PRESENT ILLNESS: Please refer to the 10/12/2017 dictation done by me. Physical examination at the time of admission was done by Dr. Wilson and lab workup done at the time of the hospitalization has also been reviewed. HOSPITAL COURSE AND RESPONSE TO TREATMENT: The patient has been observed on the inpatient unit, provided with supportive psychotherapy. The patient has been encouraged to participate in the groups and verbalize the concerns. The patient has been continued with her Aricept and Namenda and the patient also has been given the insulin for her diabetes control and the patient has been given metformin 1000 mg twice a day. The patient has been placed on quetiapine 150 mg and the patient has been closely monitored. The patient has been using racial slurs but the patient's aggressive behavior came under control, not noted to be suicidal or homicidal, and hence the patient was discharged on 10/17/2017 with recommendation that she is going to be seeking treatment on an outpatient basis. MENTAL STATUS EXAMINATION: At the time of discharge, the patient's mood is noted to be less irritable. Affect is appropriate. The patient is not suicidal or homicidal. Coping skills are noted to be fair. Sleep and appetite are also noted to be fair at the time of the discharge. CONDITION: At the time of discharge, noted to be stable. [facility]# [id number]
== END 2017-10-17 13:55 | DRG 885 ==
LOC: ER 21:32 → GERO2 22:44
PROVIDERS: ADMIT Psychiatry & Neurology Psychiatry; ATTEND Psychiatry & Neurology Psychiatry
DX: F20.0 Paranoid schizophrenia (principal); G30.9 Alzheimer's disease, unspecified; F02.81 Dementia in other diseases classified elsewhere, unspecified severity, with behavioral disturbance; E11.9 Type 2 diabetes mellitus without complications; F31.9 Bipolar disorder, unspecified; F41.9 Anxiety disorder, unspecified; F29 Unspecified psychosis not due to a substance or known physiological condition; Z66 Do not resuscitate; I10 Essential (primary) hypertension; E78.5 Hyperlipidemia, unspecified; Z83.3 Family history of diabetes mellitus; Z79.899 Other long term (current) drug therapy; Z82.49 Family history of ischemic heart disease and other diseases of the circulatory system
CPT/HCPCS: 36415-UA; 80053-TC; 80061-TC; 80320-TC; 80329-TC; 82948-90; 83036-90; 84443-TC; 85025-TC; 86592-TC; 93005; J1200; J1630; J1815; J2060; Z7610